=== PATIENT | female | born 1960 | race Caucasian/White ===

== ENCOUNTER 2023-07-26 13:59 | Observation (INO) ==
[2023-07-26] MEDS ORDERED: IOPAMIDOL 100 ML BOTTLE IV ONE (14:00)
[2023-07-26 14:13] LABS: POC Calcium, Ionized 1.23 (1.16-1.32); POC Creatinine 0.6 (0.6-1.2); POC Potassium 3.7 (3.3-5.1)
[2023-07-26 14:57] LABS: Basophils # (Auto) 0.03 K/mcL (0.00-0.30); Basophils % (Auto) 0.4 % (0.0-2.0); Eosinophils # (Auto) 0.12 K/mcL (0.00-0.70); Eosinophils % (Auto) 1.5 % (0.0-7.0); Hematocrit 45.8 % (34.1-44.9); Hemoglobin 14.9 g/dL (11.2-15.7); Lymphocytes # (Auto) 1.58 K/mcL (1.50-4.80); Lymphocytes % (Auto) 20.4 % (15.5-49.0); Mean Cell Volume 91.1 fL (80.0-100.0); Mean Corpuscular HGB Conc 32.5 g/dL (31.0-36.0); Mean Platelet Volume 10.3 fL (8.8-12.5); Monocytes # (Auto) 0.59 K/mcL (0.10-0.90); Monocytes % (Auto) 7.6 % (1.0-12.0); Platelet Count 242 K/mcL (140-440); RBC 5.03 M/mcL (3.59-5.38); Red Cell Distribution Width 12.2 % (11.5-14.5); WBC 7.8 K/mcL (4.5-11.0)
[2023-07-26] MEDS: THIAMINE 100 MG in 0.9 % SODIUM CHLORIDE 50 ML IV ONE (16:00)
[2023-07-26] MEDS: THIAMINE 100 MG/ML VIAL ONE ×2 (16:11→20:53)
[2023-07-26] MEDS: 0.9 % SODIUM CHLORIDE 50 ML IV ONE (16:11)
[2023-07-26 16:27] LABS: Amphetamine Screen,Urine None detected; Barbiturate Screen,Urine None detected; Benzodiazepines Screen,Urine None detected; Cannabinoid Screen,Urine None detected; Cocaine Screen,Urine None detected; Opiate Screen,Urine None detected; Oxycodone, Urine Screen None detected; Phencyclidine Screen,Urine None detected
[2023-07-26 16:48] LABS: Appearance,Urine CLEAR (Clear); Bilirubin,Urine Negative (Negative); Color,Urine COLORLESS; Culture Indicated,Urine No; Glucose,Urine (UA) Negative (Negative); Ketones,Urine 5 mg/dL (Negative); Leukocyte Esterase,Urine Negative /uL (Negative); Nitrate,Urine Negative (Negative); Protein,Urine Negative (Negative); Urine Blood Negative (Negative); Urobilinogen,Urine Negative
[2023-07-26] MEDS ORDERED: LABETALOL HCL 20 MG/4 ML VIAL IV PRN (18:41)
[2023-07-26] MEDS ORDERED: SENNOSIDES 1 TABLET PO PRN (18:41)
[2023-07-26] MEDS ORDERED: ACETAMINOPHEN 325 MG TABLET PO PRN (18:41)
[2023-07-26] MEDS ORDERED: ONDANSETRON 4 MG/2 ML VIAL IV PRN (18:41)
[2023-07-26] MEDS ORDERED: LABETALOL 5 MG/ML ML IV PRN (19:54)
[2023-07-26] MEDS: SODIUM CHLORIDE 0.9% IV SCH (20:59)
[2023-07-26] MEDS: THIAMINE IV SCH (20:59)
[2023-07-26] MEDS: 0.9 % SODIUM CHLORIDE 10 ML SYRINGE IV SCH (20:59)
[2023-07-27] MEDS: LISINOPRIL 5 MG TABLET PO SCH (08:29)
== END 2023-07-27 12:05 | disposition home or self-care (01) ==
LOC: ED 13:59 → INTOOBSV 18:34 → MEDSUR 18:34
PROVIDERS: ADMIT Internal Medicine; ATTEND Internal Medicine